=== PATIENT | female | born 1985 | race Caucasian/White ===

== ENCOUNTER 2020-09-02 08:54 | Emergency (ER) | payer OTHER, SELFPAY ==
--- NOTE | ~2020-09-02 | XR_ITS ---
EXAMINATION: XR chest 1V portable DATE: 09/02/2020 09:33 INDICATION: Chest pain. Shortness of breath. TECHNIQUE: A single frontal view of the chest was obtained. COMPARISON: None. FINDINGS: The chest demonstrates clear lungs without pneumonia, pleural effusion, or pneumothorax. Th e heart size is normal. IMPRESSION: 1. No acute cardiopulmonary disease. Reviewed, dictated and finalized at location A.
[2020-09-02 09:16] VITALS: BP 154/62; PULSE 103; RESP 18; TEMP 36.6; O2SAT 100
--- NOTE | 2020-09-02 09:18 | ECG_ITS ---
Measurements Intervals [place] Rate: 100 P: 69 MT: 114 QRS: 73 QRSD: 93 T: 24 QT: 319 QTc: 411 Interpretive Statements SINUS TACHYCARDIA WITH SHORT MT INTERVAL BORDERLINE ST-T WAVE ABNORMALITY- INFERIOR LEADS BASELINE ARTIFACT- II, III, AVR, AVL, AVF, V1-V6 BORDERLINE ECG Electronically Signed On 09-02-2020 12:23:49 CDT by Bunny Hess D.O.
--- NOTE | 2020-09-02 09:22 | ED.CHESTPAIN ---
HPI - Chest Pain General Chief Complaint: Chest Pain Stated Complaint: SOB/dizzyCP Time Seen by Provider: 09/02/20 09:02 Source: patient Mode of arrival: ambulatory Limitations: no limitations History of Present Illness HPI narrative: This is a 35 year old female who presents for evaluation of left chest pain and shortness of breath. She states she has been having intermittent left chest pain across her upper abdomen since she returned from [place] yesterday. She states she feels weak and sob. Her pain will last up to 2 hours and it will spontaneously resolve. She tried taking Xanax 0.25 mg today without relief of her symptoms. She has nausea but denies vomiting. She reports she was sweating all night. Related Data Allergies Allergy/AdvReac Type Severity Reaction Status Date / Time No Known Allergies Allergy Mild Unverified 09/17/06 14:37 Review of Systems Review of Systems: All systems reviewed & are unremarkable except as noted in HPI and below Constitutional: Constitutional: Reports fatigue and Reports weakness ENT: Denies sore throat Cardiovascular: Cardiovascular: Reports chest pain Respiratory: Respiratory: Reports cough and Reports dyspnea Gastrointestinal: Gastrointestinal: Reports abdominal pain, Denies diarrhea, Reports nausea and Denies vomiting [facility] Past Medical History Medical History (Updated 09/02/20 @ 14:03 by Cordelia Wilde MD) Anxiety Surgical History Surgical History (Updated 09/02/20 @ 09:32 by Cordelia Wilde MD) H/O section Social History Social History (Updated 09/02/20 @ 09:32 by Cordelia Wilde MD) Smoking status: Never smoker Alcohol intake: never Substance use type: marijuana Other substance usage details: daily Exam Const: General: alert Nutritional Appearance: thin Orientation/consciousness: patient oriented x3 Eyes: EOM: EOMs intact bilaterally Chest: Chest palpation & inspection: normal inspection of the chest Resp: Effort & Inspection: normal respiratory effort and no retractions Auscultation: clear to auscultation bilaterally Cardio: Rate: regular rate Rhythm: regular rhythm Heart sounds: no murmurs GI: GI Palp: Yes Soft to palpation, Yes Tenderness to palpation present (GI) and No Guarding due to palpation present (GI) Auscultation: normal bowel sounds Skin: Rashes: no rashes Psych: Affect: Anxious affect present Course Reevaluation(s) Reevaluation #1: I discussed with patient so far no significant abnormality. She has no abdominal pain. Abdominal exam is unremarkable. nontender now. Date: 09/02/20 Time: 12:22 Reevaluation #2: I Discussed with patient labs were unremarkable. She was hydrated with 2 L IVf. Her symptoms are atypical. She has had negative troponins, d dimer. She has ambulated with steady gait. This seems unlikely aortic etiology. She did recently travel so she will be tested for covid as possible symptoms Date: 09/02/20 Time: 14:01 Vital Signs Vital signs: Vital Signs Temperature 97.9 F 09/02/20 09:16 Pulse Rate 103 H 09/02/20 09:16 Respiratory Rate 18 09/02/20 09:16 Blood Pressure 154/62 H 09/02/20 09:16 Pulse Oximetry 100 09/02/20 09:16 Temperature 97.9 F 09/02/20 09:16 Pulse Rate 75 09/02/20 12:31 Respiratory Rate 14 09/02/20 12:31 Blood Pressure 148/100 H 09/02/20 12:31 Pulse Oximetry 100 09/02/20 12:31 MDM - Chest Pain Lab Data Attestation: I reviewed the patient's lab results. Result diagrams: 09/02/20 09:48 09/02/20 10:51 Labs: Lab Results 09/02/20 09/02/20 09/02/20 Range/Units 09:30 09:36 09:48 WBC 10.7 H (4.5-10.0) K/mm3 RBC 5.49 H (4.2-5.4) M/mm3 Hgb 16.5 H (12.0-15.0) g/dL Hct 48.1 H (37.0-47.0) % MCV 87.6 (80-100) fl MCH 30.1 (26-34) pg MCHC 34.3 (32-36) g/dl RDW 13.0 (11.5-14.5) % Plt Count 225 (150-375) k/mm3 MPV 10.8 H (7.4-10.4) fl [place]
--- NOTE | 2020-09-02 09:37 | PC.NURSE ---
Pt is not wanting a IV at this time. Pt is wanting blood drawn and then go from there. This Rn informed Dr. Wilde of this.
[2020-09-02] MEDS: SODIUM CHLORIDE 0.9% IV 1,000 ML 999 ML IV CONT (09:57)
[2020-09-02 10:00] LABS: Basophils Absolute Auto 0.1 K/mm3 (0.0-0.1); Basophils Percent Auto 0.8 % (0.2-1.2); Eosinophils Absolute Auto 0.1 K/mm3 (0-0.3); Eosinophils Percent Auto 0.6 % (0-4.4); Hematocrit 48.1 % (37.0-47.0); Hemoglobin 16.5 g/dL (12.0-15.0); Immature Granulocyte Absolute 0.04 K/mm3 (0.00-0.031); Immature Granulocyte Percent A 0.4 % (0-0.5); Lymphocytes Percent Auto 12.2 % (18.3-44.2); Mean Corpuscular HGB Conc 34.3 g/dl (32-36); Mean Corpuscular Hemoglobin 30.1 pg (26-34); Mean Corpuscular Volume 87.6 fl (80-100); Mean Platelet Volume 10.8 fl (7.4-10.4); Monocytes Absolute Auto 0.5 K/mm3 (0.1-0.6); Monocytes Percent Auto 4.3 % (2.6-8.5); Neutrophils Absolute Auto 8.7 K/mm3 (1.3-6.7); Neutrophils Percent Auto 81.7 % (45.5-73.1); Platelet Count Result 225 k/mm3 (150-375); Red Blood Count 5.49 M/mm3 (4.2-5.4); White Blood Count 10.7 K/mm3 (4.5-10.0)
[2020-09-02 10:05] LABS: Add Urine Microscopic? YES; Appearance Urine Clear (Clear); Bacteria Urine Trace /hpf; Bilirubin Urine Negative (Negative); Blood Urine Negative (Negative); Color Urine Straw (Yellow); Glucose Urine UA Negative (Negative); Ketones Urine Negative (Negative); Leukocyte Esterase Ur Trace LEU/UL (Negative); Nitrate Urine Negative (Negative); Protein Urine Negative (Negative); Specific Grav Ur 1.005 (1.001-1.035); Squamous Epithelial Cell Urine Rare /hpf (Few); Urobilinogen Urine Negative mg/dL (<2.0)
[2020-09-02 10:13] LABS: INR 0.8; Partial Thromboplastin Time 21.3 SECONDS (22.3-36.8); Prothrombin Time 11.7 Seconds (11.1-14.7)
--- NOTE | 2020-09-02 10:33 | PC.NURSE ---
lab called and stated that pts blood hemolyzed. Sent down new tube and this too was hemolyzed. Will inform Dr. Wilde of this. Pony Trimmer down to draw pts blood but pt refused.
--- NOTE | 2020-09-02 10:52 | PC.NURSE ---
Straight stick lab draw done by Emily HAYNES. Sent immediately down to lab
[2020-09-02] MEDS: LACTATED RINGERS 1,000 ML 999 ML IV CONT (11:02)
[2020-09-02 11:07] LABS: Alanine Aminotransferase 11 U/L (4-35); Albumin Level 4.3 g/dL (3.5-5.1); Alkaline Phosphatase 60 U/L (38-126); Anion Gap 6 mmol/L (8-16); Aspartate Amino Transferase 18 U/L (14-36); Blood Urea Nitrogen 11 mg/dL (7-17); Calcium 9.3 mg/dL (8.4-10.2); Carbon Dioxide 22 mmol/L (22-30); Chloride 111 mmol/L (98-107); Creatine Kinase 29 U/L (30-135); Estimated CRCL calculation 96 ml/min; Estimated Glomerular Filt Rate > 60; Glucose 97 mg/dL (65-105); Lipase 52 U/L (23-300); Magnesium 1.7 mg/dL (1.6-2.3); Potassium 3.7 mmol/L (3.4-5.0); Sodium 139 mmol/L (137-145)
[2020-09-02 11:13] LABS: D Dimer 0.33 ug/mL (<0.48)
[2020-09-02 11:18] LABS: Troponin I < 0.012 ng/mL (0.000-0.034)
[2020-09-02] MEDS: MECLIZINE HCL 25 MG TABLET PO (11:41)
[2020-09-02 12:00] VITALS: BP 144/99; PULSE 79
[2020-09-02 12:01] VITALS: BP 150/101; PULSE 90
[2020-09-02 12:03] VITALS: BP 158/102; PULSE 90
[2020-09-02 12:31] VITALS: BP 148/100; PULSE 75; RESP 14; O2SAT 100
[2020-09-02 13:39] LABS: Troponin I < 0.012 ng/mL (0.000-0.034)
[2020-09-03 19:58] LABS: SARS-CoV-2 RNA PCR Negative
== END 2020-09-02 14:23 | disposition home or self-care (01) ==
PROVIDERS: Emergency Provider General Practice
DX: R07.89 Other chest pain (principal); Z20.822 Contact with and (suspected) exposure to COVID-19; F41.9 Anxiety disorder, unspecified; R00.0 Tachycardia, unspecified; R94.31 Abnormal electrocardiogram [ECG] [EKG]
CPT/HCPCS: 36415; 71045; 80053; 81001; 81025; 82550; 83690; 83735; 84484; 85025; 85380; 85610; 85730; 93005; 96360; 96361; 99284; A9270; C9803; J7030; J7120; U0003; U0005